=== PATIENT | female | born 1945 | race Caucasian/White ===

== ENCOUNTER 2020-08-31 16:08 | Emergency (ER) | payer OTHER, MEDICARE, BC ==
[~2020-08-31] VITALS: Ht 165.1 cm; Wt 100.0 kg
[~2020-08-31 16:08] MED LIST: METOPROL TAR25 MG PO; NORCO1 TA1 PO
[2020-08-31 16:54] VITALS: BP 176/92
[2020-08-31 17:38] LABS: HEMATOCRIT 44.4 % (37.0-47.0); IMMATURE GRANULOCYTES 0.9 % (0.0-5.0); MEAN CELL VOLUME 90.1 fL CALC (80.0-100.0); MEAN CORPUSCULAR HGB 28.4 pG CALC (26.0-32.0); MEAN CORPUSCULAR HGB CONC 31.5 g/dL CAL (32.0-36.0); NEUT# 11.15 thou/uL (2.00-7.15); RED BLOOD COUNT 4.93 mill/uL (4.20-5.60); RED CELL DISTRI WIDTH 15.2 % (11.5-15.5)
[2020-08-31 17:50] LABS: ALBUMIN 4.2 g/dL (3.2-5.0); ALKALINE PHOSPHATASE 62 u/l (38-126); BILIRUBIN, TOTAL 0.4 mg/dL (0.0-1.4); BUN 12 mg/dL (8-23); BUN/CREATININE RATIO 18 (12-20 (CALC)); CARBON DIOXIDE 27 mmol/l (22-30); CHLORIDE 103 mmol/l (95-108); CREATININE 0.7 mg/dL (0.5-1.0); GFR > 60 ML/MIN (>=60 (CALC)); GFR FOR AFR.AMER. > 60 ML/MIN (>=60 (CALC)); SODIUM 137 mmol/l (137-146); TOTAL PROTEIN 7.2 g/dL (6.3-8.2)
[2020-08-31 17:52] LABS: ANION GAP 11 (6-22 (CALC)); POTASSIUM 3.9 mmol/l (3.5-5.1); SGOT/AST 52 u/l (9-36)
== END 2020-08-31 18:40 | disposition left against medical advice (07) | DRG 605 ==
LOC: ED 16:08
PROVIDERS: Emergency Medicine
DX: S20.211A Contusion of right front wall of thorax, initial encounter (principal); S91.011A Laceration without foreign body, right ankle, initial encounter; S90.812A Abrasion, left foot, initial encounter; S80.812A Abrasion, left lower leg, initial encounter; M54.2 Cervicalgia; V49.40XA Driver injured in collision with unspecified motor vehicles in traffic accident, initial encounter; Z88.8 Allergy status to other drugs, medicaments and biological substances; Z91.19 Patient's noncompliance with other medical treatment and regimen

== ENCOUNTER 2024-06-23 09:29 | Observation (INO) | payer MEDICARE ==
[2024-06-23] VITALS (11 sets, daily range): BP systolic 129–160; BP diastolic 65–86
[~2024-06-23] VITALS: Ht 160 cm; Wt 79.4 kg
[2024-06-23 09:51] LABS: BASO% 0.6 % (0-3); EOS% 3.6 % (0-8); HEMATOCRIT 38.3 % (37.0-47.0); HEMOGLOBIN 12.7 g/dl (12.0-16.0); IMMATURE GRANULOCYTES 0.3 % (0.0-5.0); MEAN CELL VOLUME 88.9 fL CALC (80.0-100.0); MEAN CORPUSCULAR HGB 29.5 pG CALC (26.0-32.0); MEAN CORPUSCULAR HGB CONC 33.2 g/dL CAL (32.0-36.0); MONO% 8.4 % (2-13); NEUT# 4.91 thou/uL (2.00-7.15); NEUT% 63.1 % (42-76); RED BLOOD COUNT 4.31 mill/uL (4.20-5.60); RED CELL DISTRI WIDTH 14.7 % (11.5-15.5)
[2024-06-23 10:19] LABS: ALBUMIN 4.1 g/dL (3.2-5.0); BILIRUBIN, TOTAL 0.6 mg/dL (0.02-1.3); CREATININE 0.6 mg/dL (0.5-1.0); POTASSIUM 3.9 mmol/l (3.5-5.1); TOTAL PROTEIN 6.8 g/dL (6.3-8.2)
[2024-06-23] MEDS ORDERED: ELIQUIS5 MG PO (11:28)
[2024-06-23] MEDS ORDERED: CARVEDILOL3.125 MG PO (11:29)
[2024-06-23] MEDS ORDERED: ACETAMINOPHEN 325 MG/TAB PO PRN (12:05)
[2024-06-23] MEDS ORDERED: ONDANSETRON 4 MG/TAB ODT SL PRN (12:05)
[2024-06-23] MEDS ORDERED: hydrALAZINE HCL 20 MG/ML VIAL(1 ML) IV PRN (12:10)
[2024-06-23 12:51] LABS: CHOLESTEROL HDL RATIO 3.2 (<4.4 (CALC))
[2024-06-23 13:22] LABS: TSH, 3RD GENERATION 1.94 uIU/mL (0.47 - 4.68)
[2024-06-23 14:14] LABS: URINE BILIRUBIN - DIPSTICK Negative (NEGATIVE); URINE BLOOD DIPSTICK Negative (NEGATIVE); URINE COLOR Yellow; URINE GLUCOSE - DIPSTICK Negative (NEGATIVE); URINE KETONE Negative (NEGATIVE); URINE LEUK ESTERASE Negative (NEGATIVE); URINE NITRITE - DIPSTICK Negative (Negative); URINE PROTEIN - DIPSTICK Negative (NEG-TRACE); URINE UROBILINOGEN - DIPSTICK 0.2 E.U./dL (0.2)
[2024-06-23] MEDS ORDERED: APIXABAN BASE 5 MG TAB PO SCH (21:00)
== END 2024-06-23 14:38 | disposition left against medical advice (07) ==
LOC: ED 09:29 → ED-I 10:37 → ED 11:40 → MS2 11:40
PROVIDERS: Family Medicine; ADMIT Internal Medicine; ATTEND Internal Medicine
DX: R42 Dizziness and giddiness (principal); R55 Syncope and collapse; H53.2 Diplopia; R26.89 Other abnormalities of gait and mobility; I10 Essential (primary) hypertension; I48.91 Unspecified atrial fibrillation; Z79.01 Long term (current) use of anticoagulants; Z95.818 Presence of other cardiac implants and grafts; Z86.73 Personal history of transient ischemic attack (TIA), and cerebral infarction without residual deficits

== ENCOUNTER 2024-06-23 15:11 | Observation (INO) | payer MEDICARE ==
[2024-06-23] VITALS (10 sets, daily range): BP systolic 57–168; BP diastolic 44–86
[~2024-06-23] VITALS: Ht 160 cm; Wt 79.0 kg
[~2024-06-23 15:11] MED LIST changes: +CARVEDILOL3.125 MG PO; +ELIQUIS5 MG PO
[2024-06-23] MEDS ORDERED: MELATONIN 3 MG/TAB PO PRN (15:45)
[2024-06-23] MEDS ORDERED: ACETAMINOPHEN 325 MG/TAB PO PRN (15:45)
[2024-06-23] MEDS ORDERED: ONDANSETRON 4 MG/TAB ODT SL PRN (15:45)
[2024-06-23] MEDS ORDERED: GADOPICLENOL (VUEWAY) 0.5 MM/ML 3.75MM/7.5ML VIAL IV ONE ×2 (15:50)
[2024-06-23] MEDS ORDERED: APIXABAN BASE 5 MG TAB PO SCH (21:00)
[2024-06-24] VITALS (8 sets, daily range): BP systolic 116–148; BP diastolic 40–85
[2024-06-24 05:06] LABS: BASO% 0.6 % (0-3); EOS% 3.4 % (0-8); HEMATOCRIT 38.9 % (37.0-47.0); HEMOGLOBIN 12.7 g/dl (12.0-16.0); IMMATURE GRANULOCYTES 0.3 % (0.0-5.0); LYMPH% 29.4 % (15-41); MEAN CELL VOLUME 91.1 fL CALC (80.0-100.0); MEAN CORPUSCULAR HGB 29.7 pG CALC (26.0-32.0); MEAN CORPUSCULAR HGB CONC 32.6 g/dL CAL (32.0-36.0); NEUT# 4.57 thou/uL (2.00-7.15); NEUT% 57.3 % (42-76); RED BLOOD COUNT 4.27 mill/uL (4.20-5.60); RED CELL DISTRI WIDTH 14.6 % (11.5-15.5)
[2024-06-24 05:27] LABS: ALBUMIN 3.5 g/dL (3.2-5.0); BILIRUBIN, TOTAL 0.5 mg/dL (0.02-1.3); CREATININE 0.7 mg/dL (0.5-1.0); MAGNESIUM 2.2 mg/dL (1.6-2.3); POTASSIUM 4.4 mmol/l (3.5-5.1)
[2024-06-24] MEDS ORDERED: AMOXICILLIN & POT CLAVULANATE 875 MG/TAB PO SCH (17:35)
[2024-06-25 02:33] VITALS: BP 152/83
[2024-06-25 04:33] VITALS: BP 152/83
[2024-06-25 05:38] VITALS: BP 142/70
[2024-06-25 09:20] VITALS: BP 124/52
[2024-06-25] MEDS ORDERED: AMOX/K CLAV875 M1 PO (10:36)
[2024-06-25 10:57] VITALS: BP 124/52
[2024-06-25] MEDS ORDERED: AMOXICILLIN & POT CLAVULANATE 875 MG/TAB PO SCH (21:00)
== END 2024-06-25 11:23 | disposition home or self-care (01) ==
LOC: ED 15:11 → ED-I 15:46 → ED 15:46 → ED-I 15:46 → ED 15:58 → MS2 15:59
PROVIDERS: ADMIT Internal Medicine; ATTEND Internal Medicine
DX: R42 Dizziness and giddiness (principal); R20.0 Anesthesia of skin; H53.2 Diplopia; R55 Syncope and collapse; J32.9 Chronic sinusitis, unspecified; I48.91 Unspecified atrial fibrillation; I10 Essential (primary) hypertension; E78.5 Hyperlipidemia, unspecified; Z95.818 Presence of other cardiac implants and grafts; Z79.01 Long term (current) use of anticoagulants; Z86.73 Personal history of transient ischemic attack (TIA), and cerebral infarction without residual deficits
CPT/HCPCS: A9573